=== PATIENT | male | born 1945 | race Caucasian/White ===

== ENCOUNTER 2022-02-10 12:36 | Outpatient (CLI) | payer MEDICARE, BC, SELFPAY ==
--- NOTE | 2022-02-10 13:00 | CRLHL7_ITS ---
For Patients: As a result of the 21st Century Cures Act, medical imaging exams and procedure reports are released immediately into your electronic medical record. You may view this report before your referring provider. If you have questions, please contact your health care provider. Indication: Radicular leg pain Technique: Multiplanar, multisequence, MRI of the lumbar spine, obtained without contrast. Comparison: No relevant comparison studies available at this institution. Findings: Preserved lumbar lordosis. Grade 1 anterolisthesis at L3-4 and L4-5, with grade 1 retrolisthesis at L5-S1. No acute fracture. No focal compression deformity. Degenerative marrow signal changes without suspicious marrow lesion. The conus medullaris terminates at approximately L1-2. No suspicious findings in the prevertebral and paraspinal soft tissues. Included SI joints are unremarkable. T12-L1: Shallow disc bulge. Left perineural cyst. No significant foraminal or spinal canal stenosis. L1-L2: Disc bulge, facet arthropathy. Mild left, mild-moderate right foraminal narrowing. Mild-moderate spinal canal narrowing. L2-L3: Disc-osteophyte complex, facet arthropathy. Mild-moderate left foraminal narrowing. No right foraminal narrowing. Moderate-severe spinal canal stenosis with lateral recess effacement, likely impinging the traversing bilateral L3 nerve roots. L3-L4: Anterolisthesis, disc bulge, facet arthropathy. Moderate bilateral foraminal stenosis. Moderate spinal canal stenosis with lateral recess stenosis, possibly impinging the traversing bilateral L4 nerves. L4-L5: Anterolisthesis, disc bulge, facet arthropathy. Moderate left, moderate-severe right foraminal stenosis with likely impingement of the exiting right L4 nerve. Mild spinal canal narrowing and lateral recess effacement, without obvious impingement of the traversing nerves. L5-S1: Disc-osteophyte complex, facet arthropathy, with right central caudal extrusion contacting the traversing right S1 nerve. Moderate bilateral foraminal stenosis. No central spinal canal stenosis. Impression: 1. Lumbar spondylosis, without evidence of acute osseous abnormality. 2. At L1-2, mild-moderate right foraminal narrowing, and mild-moderate spinal canal narrowing. 3. At L2-3, mild-moderate left foraminal narrowing, and moderate-severe spinal canal stenosis with possible impingement of the traversing L3 nerve roots along the lateral recesses. 4. At L3-4, moderate bilateral foraminal stenosis, and moderate spinal canal stenosis with possible impingement of the traversing L4 nerves along the lateral recesses. 5. At L4-5, moderate left and moderate-severe right foraminal stenosis with likely impingement of the exiting right L4 nerve. 6. At L5-S1, right central caudal disc extrusion contacting the traversing right S1 nerve along the lateral recess, with moderate bilateral foraminal stenosis. Dictated by Niya Hutchinson MD @ 02/11/2022 3:39:46 PM (Electronically Signed)
== END 2022-02-10 12:37 | disposition home or self-care (01) ==
PROVIDERS: PCP Family Medicine; Visit Provider Family Medicine
DX: M54.10 Radiculopathy, site unspecified (principal); M47.896 Other spondylosis, lumbar region; M51.26 Other intervertebral disc displacement, lumbar region; M51.37 Other intervertebral disc degeneration, lumbosacral region
CPT/HCPCS: 72148

== ENCOUNTER 2022-04-11 11:07 | Outpatient (CLI) | payer MEDICARE, BC, SELFPAY ==
[2022-04-11 19:10] LABS: Chloride* 108 mmol/L (96-114)
[2022-04-11 19:11] LABS: Sodium* 141 mmol/L (135-149)
[2022-04-11 19:13] LABS: Carbon Dioxide* 28 mmol/L (20-32); Cholesterol* 137 mg/dL (90-199); Creatinine* 0.9 mg/dL (0.5-1.5); Estimated Glomerular Filt Rate 87 ml/min
[2022-04-11 19:14] LABS: Blood Urea Nitrogen* 24 mg/dL (7-30); Calcium* 9.5 mg/dL (8.4-10.6); Glucose* 110 mg/dL (60-115); HDL Cholesterol* 52 mg/dL (>=40); LDL Cholesterol Calculated 70 mg/dL (<100); Potassium* 4.4 mmol/L (3.6-5.1); Triglycerides* 74 mg/dL (40-149)
== END 2022-04-11 11:08 | disposition home or self-care (01) ==
PROVIDERS: PCP Family Medicine; Visit Provider Family Medicine
DX: E78.5 Hyperlipidemia, unspecified (principal); I10 Essential (primary) hypertension
CPT/HCPCS: 80048; 80061

== ENCOUNTER 2022-09-15 09:34 | Outpatient (CLI) | payer MEDICARE, BC, SELFPAY ==
--- NOTE | 2022-09-15 10:15 | CRLHL7_ITS ---
For Patients: As a result of the Century Cures Act, medical imaging exams and procedure reports are released immediately into your electronic medical record. You may view this report before your referring provider. If you have questions, please contact your health care provider. Indication: Lumbar stenosis with neurogenic claudication Technique: Multiplanar, multisequence, MRI of the lumbar spine, obtained without contrast. Comparison: MRI lumbar spine 02/10/2022 Findings: Mild lumbar dextrocurvature. Preserved lumbar lordosis. Grade 1 anterolisthesis at L3-4 and L4-5. Grade 1 retrolisthesis at L5-S1. No acute fracture or discrete pars defect. Relative to the 02/10/2022 exam, new Schmorl`s nodes and Modic type 1 endplate changes at L1-2. Similar Modic type 1 endplate changes at L2-3 and L4-5. Conus medullaris terminates at approximately L1-2. No suspicious findings in the paraspinal soft tissues. Unremarkable included SI joints. T12-L1: Small left perineural cyst. No significant neural foraminal or spinal canal stenosis. L1-L2: Diffuse disc bulge, mild facet arthropathy. Mild left, mild-moderate right neural foraminal narrowing. Moderate spinal canal stenosis. L2-L3: Diffuse disc-osteophyte complex, mild facet arthropathy. Mild-moderate left neuroforaminal narrowing. Patent right neural foramina. Moderate-severe spinal canal stenosis with potential lateral recess impingement of the descending L3 nerve roots. L3-L4: Diffuse disc bulge, central annular fissure, moderate facet arthropathy. Moderate bilateral neural foraminal stenosis. Moderate spinal canal stenosis with potential lateral recess impingement of the descending L4 nerve roots. L4-L5: Diffuse disc bulge, moderately advanced facet arthropathy. Mild left, moderate-severe right neural foraminal stenosis with potential right L4 nerve root impingement. Mild spinal canal narrowing. L5-S1: Mild diffuse disc bulge, right central caudal disc extrusion contacting the descending right S1 nerve root along the lateral recess. Mild facet arthropathy. Moderate bilateral neural foraminal stenosis. No central spinal canal stenosis. Impression: 1. Since the 02/10/2022 exam, interval development of degenerative Schmorl`s nodes and Modic type 1 endplate changes at L1-2. 2. Otherwise, similar multilevel spondylosis. No acute osseus abnormality. 3. At L1-2, moderate spinal canal stenosis. 4. At L2-3, moderate-severe spinal canal stenosis with potential L3 nerve root impingement along the lateral recesses. 5. At L3-4, moderate spinal canal stenosis with potential L4 nerve root impingement along the lateral recesses. Moderate bilateral neural foraminal stenosis. 6. At L4-5, moderate-severe right neural foraminal stenosis with potential right L4 nerve root impingement. 7. At L5-S1, moderate bilateral neural foraminal stenosis and right central caudal disc extrusion contacting the descending right S1 nerve root. Dictated by Niya Hutchinson MD @ 09/15/2022 4:47:54 PM (Electronically Signed)
== END 2022-09-15 09:35 | disposition home or self-care (01) ==
LOC: MRI 09:41
PROVIDERS: PCP Family Medicine; Visit Provider Orthopaedic Surgery Orthopaedic Surgery of the Spine
DX: M48.062 Spinal stenosis, lumbar region with neurogenic claudication (principal)
CPT/HCPCS: 72148

== ENCOUNTER 2022-10-05 13:33 | Outpatient (CLI) | payer MEDICARE, BC, SELFPAY | END 2022-10-05 13:34 | disposition home or self-care (01) | LOC: LONREF 13:35 | PROVIDERS: PCP Family Medicine; Visit Provider Family Medicine | DX: Z01.818 Encounter for other preprocedural examination (principal); I10 Essential (primary) hypertension; E78.5 Hyperlipidemia, unspecified | CPT/HCPCS: 80048 ==

== ENCOUNTER 2022-10-21 06:15 | Emergency (ER) | payer MEDICARE, BC, SELFPAY ==
[2022-10-21 06:26] VITALS: BP 123/77; PULSE 89; RESP 16; TEMP 37.2; O2SAT 96; BMI 28.1
--- NOTE | 2022-10-21 06:47 | CRLHL7_ITS ---
For Patients: As a result of the Century Cures Act, medical imaging exams and procedure reports are released immediately into your electronic medical record. You may view this report before your referring provider. If you have questions, please contact your health care provider. Indication: Lower abdominal pain. Suspected constipation. Technique: Abdomen 2 view. Comparison: None. Findings/Impression: Bowel: Moderate constipation patterns present with retained stool throughout much of the colon which is otherwise nondistended. Bowel pattern otherwise normal. Soft tissues: No sign of free air. No sign of soft tissue mass. No suspicious calcifications. Bones: Unremarkable for age. Dictated by Tai Martines MD @ 10/21/2022 8:16:39 AM (Electronically Signed)
[2022-10-21] MEDS: OXYCODONE 5 MG TABLET 10 MG PO (06:50)
--- NOTE | 2022-10-21 06:51 | ED_ITS ---
HPI - General Adult General Chief complaint: Urogenital Problems, Male Stated complaint: cant perik post surgery Time Seen by Provider: 10/21/22 06:35 Source: patient Mode of arrival: ambulatory Limitations: no limitations History of Present Illness HPI narrative: 77-year-old male presents the emergency department with lower abdominal pain and urinary dribbling. He underwent back surgery 2 days ago was discharged from the hospital late yesterday afternoon. He had a catheter removed yesterday around lunchtime. He reports that since that time he has had the feeling that he has been unable to fully empty his bladder. Urine has been dribbling. He notes a sensation of lower abdominal bloating, crampy in nature. He feels restless. He reports that he has not been eating or drinking as much as usual but certainly is still taking fluids. He reports that he did not take any of these oxycodone this morning and the right over has made his back hurt more and he is hoping we can give him a couple of tablets while we work on his lower abdominal pain. He states that he is not passing any gas yet this morning, has not yet had a bowel movement. He brings his discharge paperwork and I see that he was started on senna in the hospital, last dose was given yesterday morning. He denies any dysuria but does have urinary frequency. No fevers. No nausea, no weakness. He reports that the back pain is about as expected. There is no new weakness in the legs or new radicular type symptoms. No cough, chest pain, headache or other new concerning symptoms. He is concerned that his bladder is not working properly since the catheter was removed. He is taking a muscle relaxant postoperatively and did have general anesthesia. Past medical history is notable for history of arrhythmia, aortic stenosis, hyp ertension. Home medications include chronic prescriptions for diltiazem, aspirin, losartan and a tore the statin. New prescriptions recently provided for methocarbamol, oxycodone and senna. He is a nonsmoker. He is a but has family assistance. ROS is notable for the lower abdominal symptoms as well as postoperative back pain as described above. Otherwise denies times 12 systems. Related Data Home Medications Medication Instructions Recorded Confirmed aspirin 325 mg tablet 325 mg PO QDAY 01/31/22 10/21/22 cholecalciferol (vitamin D3) 125 5,000 unit PO DAILY 01/31/22 10/21/22 mcg (5,000 unit) tablet omega 5-ivg-shv-fish oil 100 2 cap PO DAILY 01/31/22 10/21/22 mg-160 mg-1,000 mg capsule (Fish Oil) fexofenadine 180 mg tablet 180 mg PO DAILY 10/21/22 10/21/22 (Nina Allergy) oxycodone 5 mg tablet PO 10/21/22 zinc gluconate 50 mg tablet 50 mg PO DAILY 10/21/22 10/21/22 Previous Rx's Medication Instructions Recorded atorvastatin 80 mg tablet 80 mg PO .Bedtime #90 tabs 04/11/22 diltiazem HCl 180 mg 180 mg PO DAILY #90 caps 04/11/22 capsule,extended release 24 hr losartan 50 mg tablet 50 mg PO DAILY #90 tabs 04/11/22 cephalexin 500 mg capsule 500 mg PO QID #40 caps 10/05/22 hydrocodone 5 mg-acetaminophen 325 1 tab PO Q8H PRN pain #30 tabs 10/05/22 mg tablet tamsulosin 0.4 mg capsule (Flomax) 0.4 mg PO DAILY #14 caps 10/21/22 Allergies Allergy/AdvReac Type Severity Reaction Status Date / Time iodine Allergy Mild Hives Verified 10/05/22 13:02 [facility] Medical History Olecranon bursitis of right elbow ?M70.21 - Olecranon bursitis, right elbow (ICD-10) Surgical History S/P carpal tunnel release ?Z98.890 - Other specified postprocedural states (ICD-10) H/O elbow surgery ?Z98.890 - Other specified postprocedural states (ICD-10) History of uvulectomy ?Z90.89 - Acquired absence of other organs (ICD-10) H/O thumb surgery ?Z98.890 - Other specified postprocedural states (ICD-10) Status post coronary artery stent placement ?Z95.5 - Presence of coronary angioplasty implant and graft (ICD-10) Family History Family/Other Colon cancer Prostate cancer Social History Smoking Status: Former smoker Do you use any of these nicotine containing products: None How often do you have a drink containing alcohol: never AUDIT-C Alcohol total score: 0 Non-prescribed substance use: denies use Little interest or pleasure in doing things: nearly every day Feeling down, depressed, or hopeless: not at all Exam Const: Vital Signs, click to edit/add: Vital Signs - 24 hr 10/21/22 06:26 10/21/22 07:27 Temperature 99.0 F 99.4 F Pulse Rate [Left P ulse Oximeter] 89 81 Respiratory Rate 16 18 Blood Pressure [Ri ght Upper Arm] 123/77 121/68 Pulse Oximetry 96 96 Oxygen Delivery Me thod Room Air Room Air Documenting provider has reviewed patient's vital signs: yes Other: Moderate historian. Awake, alert. Able to answer questions and follow commands. Friendly and cooperative. Appears well nourished and well hydrated. HENMT: Common normals: normocephalic and head/scalp atraumatic Head and scalp: normocephalic and atraumatic Face and sinus: normal facial exam Mouth: oral and palatal mucosa normal Eye: Common normals: conjunctivae normal General eye: normal appearance of both eyes Conjunctiva: conjunctiva(e) normal Resp: Common normals: normal respiratory effort, no use of accessory muscles and clear to auscultation bilaterally Effort & inspection: able to speak in complete sentences Auscultation: clear to auscultation bilaterally Cardio: Other: 3/6 systolic decrescendo murmur, suspici ous for aortic stenosis. No gallops. Regular rate and rhythm GI: Other: Lower abdomen was a little distended, mildly tender to palpation. Bowel sounds are normoactive throughout. There are no obvious masses. Neuro: Speech: speech normal Motor exam: strength 5/5 throughout Psych: Attitude: engaged Other: Mildly anxious but behavior appropriate. Insight and judgment seem intact. Course Course Hospital Course: We attempted to bladder scan and did not get a clear picture, I suspect there was some overlying bowel gas. A couple of times at suggested that there was 1- 200 mL in the bladder. Knowing that if there was urinary retention a Figueroa catheter would need to be placed, we decided to attempt to place Figueroa rather than straight cath and half to perform another insertion which could potentially be uncomfortable for patient. The Figueroa catheter yielded about 250 mL. Darker urine but certainly not overly foul appearing. He is asking for oral fluids which we will provide. He is asking for a dose of his oxycodone which we will provide. I would like to perform a urinalysis to ensure there is no infection I would like to get an abdominal flat plate just to make sure that this is not constipation and gas which is certainly possible as well. He is moving the legs well, there does not seem to be any sign of significant neurological dysfunction. Reevaluation(s) Time of Reevaluation #1: 07:47 Reevaluation #1: Patient feeling much better with his back pain after the oxycodone was given. This is his typical home dose, he had just not taken it prior to leaving house. Discussed the urinary findings. He did have a total of about 300 out. After reviewing his x-ray, I suspect gas and constipation are much more likely the source of his abdominal discomfort. He is in agreement with this. We discussed the risks and benefits of trying to remove the catheter. He would like to try starting some Flomax after our discussion and removing the catheter, he fully does understand the risks and benefits of this verses leaving the catheter in. He will continue drinking lots of water, continue the docusate senna as prescribed and the pain medications and discharge instructions outlined by his surgical team. Alarm symptoms were extensively reviewed as indications to come back to the ED any verbalizes understanding and agreement. Vital Signs Vital signs: Initial Vital Signs Temperature 99.0 F 10/21/22 06:26 Temperature Source Temporal Artery Scan 10/21/22 06:26 Pulse Rate 89 10/21/22 06:26 Respiratory Rate 16 10/21/22 06:26 Blood Pressure 123/77 10/21/22 06:26 Blood Pressure Mean 92 10/21/22 06:26 Blood Pressure Position Sitting 10/21/22 06:26 Pulse Oximetry 96 10/21/22 06:26 Oxygen Delivery Method Room Air 10/21/22 06:26 Vital Signs Temperature 99.0 F 10/21/22 06:26 Pulse Rate 89 10/21/22 06:26 Respiratory Rate 16 10/21/22 06:26 Blood Pressure 123/77 10/21/22 06:26 Pulse Oximetry 96 10/21/22 06:26 Oxygen Delivery Method Room Air 10/21/22 06:26 Temperature 99.4 F 10/21/22 07:27 Pulse Rate 81 10/21/22 07:27 Respiratory Rate 18 10/21/22 07:27 Blood Pressure 121/68 10/21/22 07:27 Pulse Oximetry 96 10/21/22 07:27 Oxygen Delivery Method Room Air 10/21/22 07:27 Medical Decision Making MDM Narrative Medical decision making narrative: Differential diagnosis including urinary infection, urinary retention, constipation, surgical complication, neurological injury. Lab Data Lab results reviewed: Yes I reviewed the patient's lab results Lab results narrative: Not overly concentrated, no obvious infection. Labs: Lab Results 10/21/22 Range/Units 06:45 Urine Color Yellow (Yellow) Urine Appearance Clear (Clear) Urine pH 6.0 (5.0-8.5) Ur Specific [place] 1.020 (1.000-1.030) Urine Protein Trace A (Negative) Urine Glucose (UA) Negative (Negative) Urine Ketones 1+ A (Negative) Urine Blood Trace-intact A (Negative) Urine Nitrite Negative (Negative) Urine Bilirubin Negative (Negative) Urine Urobilinogen 0.2 (0.2-1.0) Ur Leukocyte Esterase Negative (Negative) Urine RBC 2-5 A (0-2) Urine WBC 0-2 (0-5) Ur Squamous Epith Cells Few (None-Few) Urine Bacteria Few A (None) Imaging Data Abdominal x-ray: Attestation: I have reviewed the pertinent imaging results. My impression: Postoperative changes with gas and constipation. No obstruction Discharge Plan Discharge Clinical Impression: Constipation Patient Disposition: Home w/ Parent or Adult Condition: Improved Instructions: Constipation (DC) Additional Instructions: As we discussed, there was a small amount of retained urine in your bladder but no signs of infection. Together, we have decided to start you on some Flomax which is a medication that will help reduce her chance of urinary retention again and to try to take out the urinary catheter. You were given your 1st dose of the Flomax here in the emergency department and an additional 2 week supply has been sent to your pharmacy. I strongly recommend taking this for the full 2 weeks. Your homework is to drink a minimum of 6 glasses of water per day and continue taking the laxatives that were prescribed by your surgical team. Both the anesthesia, not moving around much for the 1st couple of days and the pain medications will make you constipated. The lower abdominal pain that your having is much more likely related to constipation and gas. You have been started on laxatives for this, continue using those. Most people have a bowel movement the 3rd or 4th day after surgery. I am glad that your back is feeling better after you took your pain medication. Continue taking this as prescribed. If you are unable to urinate, come back to the emergency department. If he began running fevers or have severely uncontrolled pain, come back as well. There will be no other changes to your recommendations postoperatively. Activity Level: Activity as Tolerated Discharge Diet: Regular Prescriptions: New tamsulosin [Flomax] 0.4 mg capsule 0.4 mg PO DAILY Qty: 14 0RF No Action atorvastatin 80 mg tablet 80 mg PO .Bedtime Qty: 90 3RF diltiazem HCl 180 mg capsule,extended release 24hr 180 mg PO DAILY Qty: 90 3RF losartan 50 mg tablet 50 mg PO DAILY Qty: 90 3RF cholecalciferol (vitamin D3) 125 mcg (5,000 unit) tablet 5,000 unit PO DAILY Fish Oil 100-160-1,000 mg capsule 2 cap PO DAILY aspirin 325 mg tablet 325 mg PO QDAY cephalexin 500 mg capsule 500 mg PO QID Qty: 40 0RF hydrocodone-acetaminophen 5-325 mg tablet 1 tab PO Q8H PRN (Reason: pain) Qty: 30 0RF oxycodone 5 mg tablet PO zinc gluconate 50 mg tablet 50 mg PO DAILY fexofenadine [Nina Allergy] 180 mg tablet 180 mg PO DAILY Follow Up/Referrals: Jose Kruse MD [Primary Care Provider] - Stand Alone Forms: RNDOMN Info Instructions
[2022-10-21 07:09] LABS: Appearance Urine Clear (Clear); Bilirubin Urine Negative (Negative); Blood Urine Trace-intact (Negative); Color Urine Yellow (Yellow); Glucose Urine Negative (Negative); Ketones Urine 1+ (Negative); Leukocyte Esterase Urine Negative (Negative); Nitrite Urine Negative (Negative); Protein Urine Trace (Negative); Urobilinogen Urine 0.2 (0.2-1.0)
--- NOTE | 2022-10-21 07:25 | ED.NURSE ---
14f caude patel placed for 150cc output, urine sent to lab. no complications for insertion, 30cc balloon filled per label.
[2022-10-21 07:27] VITALS: BP 121/68; PULSE 81; RESP 18; TEMP 37.4; O2SAT 96
[2022-10-21 07:32] LABS: Bacteria Urine Few; Squamous Epithelial Cell Urine Few (None-Few); WBC Urine 0-2 (0-5)
[2022-10-21] MEDS: TAMSULOSIN HCL 0.4 MG CAPSULE PO (08:05)
== END 2022-10-21 08:21 | disposition home or self-care (01) ==
LOC: ED 07:46
PROVIDERS: Emergency Provider Family Medicine; PCP Family Medicine
DX: K59.00 Constipation, unspecified (principal); R33.9 Retention of urine, unspecified
CPT/HCPCS: 51701; 74018; 81003; 81015; 87086; 99283; 99284; 99285; A9270

== ENCOUNTER 2022-11-18 11:23 | Outpatient (CLI) | payer MEDICARE, BC, SELFPAY | END 2022-11-18 11:24 | disposition home or self-care (01) | LOC: LONREF 11:24 | PROVIDERS: PCP Family Medicine; Visit Provider Family Medicine | DX: R30.0 Dysuria (principal) | CPT/HCPCS: 87086 ==

== ENCOUNTER 2023-03-27 10:15 | Outpatient (RCR) | payer MEDICARE, BC, SELFPAY | END 2023-06-29 10:53 | disposition home or self-care (01) | PROVIDERS: PCP Family Medicine; Visit Provider Family Medicine | DX: M19.011 Primary osteoarthritis, right shoulder (principal); M19.012 Primary osteoarthritis, left shoulder; M25.511 Pain in right shoulder; M25.512 Pain in left shoulder; M25.619 Stiffness of unspecified shoulder, not elsewhere classified; M62.81 Muscle weakness (generalized); Z51.89 Encounter for other specified aftercare | CPT/HCPCS: 97110; 97140; 97161 ==

== ENCOUNTER 2023-07-03 10:21 | Outpatient (CLI) | payer MEDICARE, BC, SELFPAY | END 2023-07-03 10:22 | disposition home or self-care (01) | LOC: NFLDREF 07-05 06:52 | PROVIDERS: PCP Family Medicine; Referring Provider Family Medicine; Visit Provider Family Medicine | DX: E78.5 Hyperlipidemia, unspecified (principal) | CPT/HCPCS: 80061 ==

== ENCOUNTER 2023-11-24 15:22 | Outpatient (CLI) | payer MEDICARE, BC, SELFPAY | END 2023-11-24 15:23 | disposition home or self-care (01) | PROVIDERS: PCP Family Medicine; Visit Provider Family Medicine | DX: I10 Essential (primary) hypertension (principal); E78.5 Hyperlipidemia, unspecified; R60.9 Edema, unspecified; Z13.0 Encounter for screening for diseases of the blood and blood-forming organs and certain disorders involving the immune mechanism; Z12.5 Encounter for screening for malignant neoplasm of prostate | CPT/HCPCS: 80048; 84443; G0103 ==

== ENCOUNTER 2023-12-04 09:39 | Outpatient (CLI) | payer MEDICARE, BC, SELFPAY | END 2023-12-04 09:40 | disposition home or self-care (01) | PROVIDERS: PCP Family Medicine; Visit Provider Family Medicine | DX: I35.0 Nonrheumatic aortic (valve) stenosis (principal); I51.7 Cardiomegaly; I34.0 Nonrheumatic mitral (valve) insufficiency | CPT/HCPCS: 93306 ==

== ENCOUNTER 2024-07-02 13:58 | Outpatient (CLI) | payer MEDICARE, BC, SELFPAY | END 2024-07-02 13:59 | disposition home or self-care (01) | LOC: LKVREF 13:59 | PROVIDERS: PCP Family Medicine; Visit Provider Family Medicine | DX: E78.00 Pure hypercholesterolemia, unspecified (principal) | CPT/HCPCS: 80061 ==

== ENCOUNTER 2024-09-17 14:18 | Outpatient (CLI) | payer MEDICARE, BC, SELFPAY | END 2024-09-17 14:19 | disposition home or self-care (01) | LOC: LKVREF 14:20 | PROVIDERS: PCP Family Medicine; Visit Provider Family Medicine | DX: R60.0 Localized edema (principal) | CPT/HCPCS: 84443 ==